=== PATIENT | female | born 1950 | race Caucasian/White ===

== ENCOUNTER 2020-03-08 21:17 | Emergency (ER) | payer MEDICARE ==
[~2020-03-08] VITALS: Ht 160 cm; Wt 68.0 kg
[~2020-03-08 21:17] MED LIST: ASPIR-LOW81 MG PO; LISINOPRIL10 MG PO; METOPROLOL SUCC50 MG PO
[2020-03-08] MEDS ORDERED: LOVASTATIN40 MG PO (21:27)
[2020-03-08] MEDS ORDERED: LISINOPRIL20 MG PO (21:28)
[2020-03-08] MEDS ORDERED: METOPROLOL SUC100 MG PO (21:28)
--- NOTE | 2020-03-09 02:30 | EKG ---
[facility] [address] [facility] [place], [place] [address] Signed Normal sinus rhythm Nonspecific ST and T wave abnormality Abnormal ECG No previous ECGs available Confirmed by SETH PECK MD ([id number]) on 03/09/2020 2:29:45 AM Electronically Signed By: SETH PECK MD 03/09/20 0230 PATIENT NAME: MANUEL GONSALEZ Electrocardiogram DATE OF : 46 PHYSICIAN: SETH PECK MD REPORT #: [id number] REPORT IS CONFIDENTIAL AND NOT TO BE RELEASED WITHOUT AUTHORIZATION
== END 2020-03-08 22:42 | disposition home or self-care (01) ==
LOC: ED 21:17
DX: R00.2 Palpitations (principal); I10 Essential (primary) hypertension; E78.00 Pure hypercholesterolemia, unspecified; Z87.891 Personal history of nicotine dependence; Z79.899 Other long term (current) drug therapy; Z79.82 Long term (current) use of aspirin
CPT/HCPCS: 80053; 83735; 84484; 85025; 93005; 93010; 99285-25

== ENCOUNTER 2020-10-12 22:16 | Emergency (ER) | payer MEDICARE ==
[~2020-10-12] VITALS: Ht 160 cm; Wt 68.0 kg
[~2020-10-12 22:16] MED LIST changes: +LISINOPRIL20 MG PO; +LOVASTATIN40 MG PO; +METOPROLOL SUC100 MG PO
--- NOTE | 2020-10-13 18:43 | EKG ---
[facility] [address] [facility] [place] [address] Signed Normal sinus rhythm Nonspecific ST abnormality Abnormal ECG When compared with ECG of 08-MAR-2020 21:28, Nonspecific T wave abnormality no longer evident in Anterolateral leads Confirmed by LEOBARDO PEREZ DO ([id number]) on 10/13/2020 6:43:15 PM Electronically Signed By: LEOBARDO PEREZ DO 10/13/20 1843 PATIENT NAME: CELESTINE GONSALEZPALMER SIERRA Electrocardiogram DATE OF : 46 PHYSICIAN: LEOBARDO PEREZ DO REPORT #: [id number] REPORT IS CONFIDENTIAL AND NOT TO BE RELEASED WITHOUT AUTHORIZATION
== END 2020-10-13 02:45 | disposition home or self-care (01) ==
LOC: ED 22:16
DX: R07.89 Other chest pain (principal); I25.2 Old myocardial infarction; I10 Essential (primary) hypertension; E78.00 Pure hypercholesterolemia, unspecified; Z87.891 Personal history of nicotine dependence; Z79.899 Other long term (current) drug therapy; Z79.82 Long term (current) use of aspirin
CPT/HCPCS: 71045; 71260; 80053; 83735; 84484; 85025; 85379; 93005; 93010; 99285-25; Q9967

== ENCOUNTER 2020-12-13 19:11 | Emergency (ER) | payer MEDICARE, OTHER ==
[~2020-12-13] VITALS: Ht 160 cm; Wt 70.4 kg
--- NOTE | 2020-12-13 19:50 | EKG ---
[facility] [address] [facility] [place] [address] Signed Normal sinus rhythm with sinus arrhythmia Nonspecific ST and T wave abnormality Abnormal ECG When compared with ECG of 12-OCT-2020 22:22, Nonspecific T wave abnormality now evident in Inferior leads Nonspecific T wave abnormality now evident in Anterolateral leads Confirmed by LEOBARDO PEREZ DO ([id number]) on 12/13/2020 7:50:04 PM Electronically Signed By: LEOBARDO PEREZ DO 12/13/20 1950 PATIENT NAME: CELESTINE GONSALEZPALMER ENCINASA Electrocardiogram DATE OF : 46 PHYSICIAN: LEOBARDO PEREZ DO REPORT #: [id number] REPORT IS CONFIDENTIAL AND NOT TO BE RELEASED WITHOUT AUTHORIZATION
--- NOTE | 2020-12-14 20:21 | EKG ---
[facility] [address] [facility] [place], [place] [address] Signed Normal sinus rhythm Normal ECG When compared with ECG of 13-DEC-2020 19:14, Nonspecific T wave abnormality no longer evident in Lateral leads Confirmed by LEOBARDO PEREZ DO ([id number]) on 12/14/2020 8:21:34 PM Electronically Signed By: LEOBARDO PEREZ DO 12/14/202020 PATIENT NAME: SUNSHINEMANUELPALMER SIERRA Electrocardiogram DATE OF : 46 PHYSICIAN: LEOBARDO PREEZ DO REPORT #: [id number] REPORT IS CONFIDENTIAL AND NOT TO BE RELEASED WITHOUT AUTHORIZATION
== END 2020-12-13 21:28 | disposition home or self-care (01) ==
LOC: ED 19:11
DX: R07.89 Other chest pain (principal); I10 Essential (primary) hypertension; E78.00 Pure hypercholesterolemia, unspecified; Z79.82 Long term (current) use of aspirin; Z87.891 Personal history of nicotine dependence; Z79.899 Other long term (current) drug therapy
CPT/HCPCS: 71045; 80053; 83735; 84484; 85025; 93005; 93010; 99285-25

== ENCOUNTER 2021-01-22 09:43 | Emergency (ER) | payer OTHER ==
[~2021-01-22] VITALS: Ht 160 cm; Wt 68.9 kg
--- NOTE | 2021-01-23 14:59 | EKG ---
[facility] [address] [place] [address] Signed Accelerated Junctional rhythm Incomplete right bundle branch block ST \T\ T wave abnormality, consider inferior ischemia Abnormal ECG When compared with ECG of 13-DEC-2020 20:34, Junctional rhythm has replaced Sinus rhythm Vent. rate has increased BY [address] now depressed in Inferior leads T wave inversion more evident in Inferior leads Confirmed by COLLIN AMAYA MD ([id number]) on 01/23/2021 2:59:12 PM Electronically Signed By: COLLIN AMAYA MD 01/23/21 1459 PATIENT NAME: MANUEL GONSALEZ Electrocardiogram DATE OF : 46 PHYSICIAN: COLLIN AMAYA MD REPORT #: [id number] REPORT IS CONFIDENTIAL AND NOT TO BE RELEASED WITHOUT AUTHORIZATION
--- NOTE | 2021-01-23 14:59 | EKG ---
[facility] [address] [facility] [place] [address] Signed Normal sinus rhythm Nonspecific T wave abnormality Abnormal ECG When compared with ECG of 22-JAN-2021 10:02, (Unconfirmed) Sinus rhythm has replaced Junctional rhythm Vent. rate has decreased BY [address] no longer depressed in Inferior leads Confirmed by COLLIN AMAYA MD ([id number]) on 01/23/2021 2:59:17 PM Electronically Signed By: COLLIN AMAYA MD 01/23/21 1459 PATIENT NAME: MANUEL GONSALEZ Electrocardiogram DATE OF : 46 PHYSICIAN: COLLIN AMAYA MD REPORT #: [id number] REPORT IS CONFIDENTIAL AND NOT TO BE RELEASED WITHOUT AUTHORIZATION
== END 2021-01-22 13:28 | disposition home or self-care (01) ==
LOC: ED 09:43
DX: I47.1 Supraventricular tachycardia (principal); I25.2 Old myocardial infarction; I10 Essential (primary) hypertension; E78.00 Pure hypercholesterolemia, unspecified; Z95.1 Presence of aortocoronary bypass graft; Z87.891 Personal history of nicotine dependence; Z79.899 Other long term (current) drug therapy; Z79.82 Long term (current) use of aspirin
CPT/HCPCS: 80053; 83735; 84484; 85025; 93005; 93010; 99285-25

== ENCOUNTER 2021-03-22 19:20 | Emergency (ER) | payer MEDICARE ==
[~2021-03-22] VITALS: Ht 160 cm; Wt 66.0 kg
--- NOTE | 2021-03-25 11:25 | EKG ---
[facility] [address] [facility] [place] [address] Signed Normal sinus rhythm ST \T\ T wave abnormality, consider inferior ischemia Abnormal ECG When compared with ECG of 22-JAN-2021 11:05, No significant change was found Confirmed by COLLIN AMAYA MD ([id number]) on 03/25/2021 11:25:03 AM Electronically Signed By: COLLIN AMAYA MD 03/25/21 1125 PATIENT NAME: CELESTINE GONSALEZPALMER SIERRA Electrocardiogram DATE OF : 46 PHYSICIAN: COLLIN AMAYA MD REPORT #: [id number] REPORT IS CONFIDENTIAL AND NOT TO BE RELEASED WITHOUT AUTHORIZATION
== END 2021-03-23 19:53 | disposition short-term general hospital (02) ==
LOC: ED 19:20
DX: I21.4 Non-ST elevation (NSTEMI) myocardial infarction (principal); I16.0 Hypertensive urgency; Z20.822 Contact with and (suspected) exposure to COVID-19; I25.2 Old myocardial infarction; I10 Essential (primary) hypertension; E78.00 Pure hypercholesterolemia, unspecified; I48.91 Unspecified atrial fibrillation; Z87.891 Personal history of nicotine dependence; Z79.82 Long term (current) use of aspirin; Z79.899 Other long term (current) drug therapy
CPT/HCPCS: 71045; 80053; 83735; 84484; 85025; 85730; 93005; 93010; 96374; 96375; 99285-25; C9803; J1644; U0003

== ENCOUNTER 2021-05-03 08:08 | Emergency (ER) | payer MEDICARE ==
[~2021-05-03] VITALS: Ht 160 cm; Wt 65.8 kg
--- NOTE | 2021-05-03 20:35 | EKG ---
[facility] [address] [facility] [place] [address] Signed Sinus rhythm with 1st degree AV block Nonspecific T wave abnormality Abnormal ECG When compared with ECG of 22-MAR-2021 19:27, W[place] interval has increased Nonspecific T wave abnormality has replaced inverted T waves in Inferior leads Confirmed by SETH PECK MD ([id number]) on 05/03/2021 8:35:40 PM Electronically Signed By: SETH PECK MD 05/03/212034 PATIENT NAME: CELESTINE GONSALEZPALMER SIERRA Electrocardiogram DATE OF : 46 PHYSICIAN: SETH PECK MD REPORT #: [id number] REPORT IS CONFIDENTIAL AND NOT TO BE RELEASED WITHOUT AUTHORIZATION
== END 2021-05-03 12:10 | disposition home or self-care (01) ==
LOC: ED 08:08
DX: R07.2 Precordial pain (principal); I25.2 Old myocardial infarction; I10 Essential (primary) hypertension; E78.5 Hyperlipidemia, unspecified; I48.91 Unspecified atrial fibrillation; Z79.899 Other long term (current) drug therapy; Z79.82 Long term (current) use of aspirin; Z87.891 Personal history of nicotine dependence
CPT/HCPCS: 36415; 71045; 80048; 84484; 85025; 93005; 93010; 99285-25

== ENCOUNTER 2021-05-25 21:41 | Inpatient (IN) | payer MEDICARE ==
[~2021-05-25] VITALS: Ht 160 cm; Wt 65.4 kg
--- NOTE | ~2021-05-25 | OR ---
[facility] [address] [place], [place] [address] Draft DATE OF OPERATION: 05/26/2021 SURGEON: Yoli Oliveros MD PREOPERATIVE DIAGNOSES: 1. Severe acute calculous cholecystitis. 2. History of non-STEMI two months ago, status post drug-eluting stent x1; anti-platelet therapy, aspirin and Plavix. POSTOPERATIVE DIAGNOSES: 1. Severe acute calculous cholecystitis. 2. History of non-STEMI two months ago, status post drug-eluting stent x1; anti-platelet therapy, aspirin and Plavix. PROCEDURE: Laparoscopic cholecystectomy with attempted (failed intraoperative cholangiogram) prolonged, complicated and difficult. 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 INDICATION: A 71-year-old white woman presents to the emergency room, was evaluated by Dr. Gill for severe right subcostal pain with localized tenderness. A gallbladder ultrasound was performed confirming a thickened gallbladder wall with multiple stones and a CT scan was additionally performed which showed no sign of cardiothoracic pathology. The patient has very complex past medical history including history of coronary artery bypass grafting years ago and two months ago a non-STEMI requiring a drug-eluting stent x1. This was in the right coronary artery. She additionally had an 80% and 70% stenosis of a left coronary artery. She has been on anti-platelet therapy of aspirin and Plavix. She has been admitted, fluid resuscitated and consideration of her complicated issues undertaken. Consultation was undertaken with Dr. Amaya. Given the severity of her cholecystitis clinically and otherwise expedient cholecystectomy was deemed advisable. Waiting for a "elective" time would not be appropriate in her situation. On that basis, her aspirin and Plavix have been withheld for the past 24 hours and platelet infusion undertaken under my direction today. She is now to undergo cholecystectomy preferably by laparoscopic approach. She understands the risk of bleeding, infection, bile duct injury, failure to cure her symptoms, need for open procedure, and of course, the PATIENT NAME: MANUEL GONSALEZ OPERATIVE REPORT DATE OF : 46 REPORT #: [id number] PHYSICIAN: YOLI OLIVEROS MD PCP: JEN MCKINNEY NP REPORT IS CONFIDENTIAL AND NOT TO BE RELEASED WITHOUT AUTHORIZATION [facility] [address] [place] [address] Draft possibility of operative bleeding or stent or vessel thrombosis. Understanding these specialized and significant risks, she wishes to proceed. FINDINGS: The gallbladder was quite markedly thickened and intensely inflamed. Cholecystectomy was successfully performed. She had multiple large stones in the gallbladder. The cystic duct was well identified but fibrotic and would not accommodate the cholangiocatheter due to anatomic positioning reasons and further procedure cholangiogram was not undertaken. Notably, she had normal preoperative liver enzymes and bilirubin. The operation was challenging on the basis of her obesity, her distended gallbladder and inflammatory changes, but was accomplished safely and without untoward bleeding. Fibrin glue was used as an adjunct for hemostasis. DESCRIPTION OF PROCEDURE: The patient was brought to the operating room, given a general endotracheal anesthetic without problem. The abdomen was prepared with a chlorhexidine solution and draped sterilely. Preoperative antibiotic Ancef was given. Sequential compression device stockings were used. Heparin was not administered. The abdomen was prepared with a chlorhexidine solution and draped sterilely. An infraumbilical incision was made using an open Zeke cannula technique. Pneumoperitoneum was achieved to a level of 14 mmHg of carbon dioxide gas. Intra-abdominal inspection showed no sign of ascites or carcinomatosis. The liver appeared reasonably normal. The gallbladder itself was quite markedly distended and chronically and acutely inflamed. A thick peritoneal rind was noted in the infundibulum. Three additional trocars were placed in usual configuration in the subxiphoid, right midclavicular, and right anterior axillary line. The gallbladder was grasped and elevated cephalad, but was difficult to grasp due to the gallbladder being full of stones and distended and inflamed and thickened. On that basis, it was decompressed with a needle catheter, though not much bile came out actually. It did have bilious fluid color, was not white or clear bile. The gallbladder was once again grasped and elevated cephalad and using retraction of the neck of the gallbladder laterally, blunt dissection was undertaken in the infundibulum. Identified early on were several small blood vessels which were clipped and divided. Ultimately, the cystic duct was identified. It was fibrotic and quite inflamed, but not excessively large. The wound was created between the infundibulum and the cystic duct, identifying well the cystic duct. A clip was applied across gallbladder cystic duct junction and a transverse choledochotomy made in the cystic duct. There was not much egress of bile from it, though there was some. Various maneuvers were made to insert an Morrison type cholangiocatheter into the cystic duct but it was not forthcoming despite efforts to do so. Balancing the hazard of prolonged anesthesia and performance of the cystic duct in the face of normal liver enzymes, I elected to abandon further attempts at cholangiogram at that point. The cystic duct was triply clipped and divided and the gallbladder was then dissected free in a retrograde fashion using electrocautery. PATIENT NAME: CELESTINE GONSALEZPALMER SIERRA OPERATIVE REPORT DATE OF : 46 REPORT #: [id number] PHYSICIAN: YOLI OLIVEROS MD PCP: JEN MCKINNEY NP REPORT IS CONFIDENTIAL AND NOT TO BE RELEASED WITHOUT AUTHORIZATION [address] [address] Draft Meticulous care was undertaken with the dissection as the gallbladder wall was quite markedly edematous, thickened and inflamed. Once excised, it was placed in an endobag and extracted through the infraumbilical port site and found to have multiple large gallstones. There was no sign of neoplasm of mucosa. Irrigation was undertaken in subhepatic space and cautery was used for hemostasis in the liver bed as necessary. Fibrin glue (Tisseel) was injected with the device allowing for additional security for hemostasis. The trocars were removed carefully under direct visualization showing no sign of bleeding. The infraumbilical fascial incision was reapproximated with interrupted 0 Vicryl suture. A 20 mL of 0.25% Marcaine with epinephrine was injected locally. The skin was then closed with interrupted 3-0 Vicryl and Steri-Strips were applied. The patient was extubated without complication, ultimately taken to recovery room in the intensive care unit for further management. She was hemodynamically stable throughout the procedure and there was no untoward bleeding. The operation was prolonged, complicated, and difficult on the basis of the aforementioned factors but was accomplished safely. MD TAVO Pool/THIENL /[id number] cc: ALBERTA Linares MD Dr. Rinehart Copies: COLLIN AMAYA MD ~ PATIENT NAME: MANUEL GONSALEZ OPERATIVE REPORT DATE OF : 46 REPORT #: [id number] PHYSICIAN: YOLI OLIVEROS MD PCP: JEN MCKINNEY NP REPORT IS CONFIDENTIAL AND NOT TO BE RELEASED WITHOUT AUTHORIZATION
--- NOTE | ~2021-05-25 | HP ---
[facility] [address] [place], [place] [address] Draft ADMISSION DATE: 05/26/2021 REASON FOR ADMISSION: Severe acute cholecystitis. HISTORY OF PRESENT ILLNESS: This 71-year-old white woman presents to the emergency room having had approximately 48 hours of severe right upper abdominal and epigastric pain. Her evaluation by Dr. Gill in the emergency room confirmed clinical suspicion of acute cholecystitis; evaluation included a gallbladder ultrasound which showed marked thickening of the gallbladder wall as well as gallstones. Notably she had significant tenderness in the epigastric and right subcostal area. She notes that she had nausea and some vague abdominal pain in the upper abdomen of long-standing, but only recently has become rather severe. Complicating her situation was a history of a non-ST elevation myocardial infarction approximately two months ago for which she underwent coronary stenting at [facility] in the [facility]. On that basis, she is on both aspirin and Plavix. I assume she has drug-eluting stents. She is admitted for further evaluation and care. A CT scan was additionally performed showing diffuse gallbladder wall thickening and gallstones and pancolonic wall thickening suggestive of underdistention. Consultation was undertaken with Dr. Amaya, who kindly evaluated the patient and has called Cardiology at [facility] regarding the issue of concurrent anti-platelet therapy and need for operation. General recommendations of course are to maintain anti-platelet therapy as soon as possible after operation though her medications have been held at the moment. I had reviewed and have ordered platelet therapy for consideration of preoperative infusion so as to minimize the bleeding potential. Mindful that the data regarding platelet therapy in relation to stent thrombosis is unsettled largely. The patient has been initiated on Ancef antibiotic and made n.p.o. and given IV fluids. Her current situation is that of persistent right subcostal pain and nausea. She has no precordial chest pain or pain typical of her previous cardiac pain. PATIENT NAME: MANUEL GONSALEZ HISTORY AND PHYSICAL DATE OF : 46 REPORT #: [id number] PHYSICIAN: YOLI OLIVEROS MD PCP: JEN MCKINNEY NP REPORT IS CONFIDENTIAL AND NOT TO BE RELEASED WITHOUT AUTHORIZATION [facility] [address] [place], [place] [address] Draft PAST MEDICAL HISTORY: Includes smoking, which she ceased over 20 years ago. She has not had abdominal surgery in the past. The patient is known to have had history of atrial fibrillation, not evident at this time. SOCIAL HISTORY: She is . Her in the past year of myocardial infarction. She has four adult children who live elsewhere. Her daughter who has seen her is from [place], [place] and is aware of her situation overall. REVIEW OF SYSTEMS: She denies any hematemesis or blood per rectum. She has had no dysphagia or dysuria. Denies any TIA symptoms. She is known to have carotid occlusion unilaterally and 75% stenosis on the other side. PHYSICAL EXAMINATION: GENERAL: This is a pleasant white woman who is alert and oriented and does not look systemically toxic at this time. VITAL SIGNS: Her temperature has been 99.2 this morning, 98.8 last night. Her pulse is 87, blood pressure 173/61, O2 saturation is 98% on room air. HEENT: Trachea is midline. She has no hoarseness. There is noted thyromegaly. CHEST: Shows normal respiratory excursion and is clear. HEART: Regular; surveillance system monitor shows no evidence of atrial fibrillation. ABDOMEN: Somewhat obese. She has marked tenderness in right subcostal and epigastric area. There is no palpable mass. She has no ascites. EXTREMITIES: Show no clubbing, cyanosis, or edema. She does not yet have sequential compression device stockings in place. LABORATORY STUDIES: Show a white count of 8.0, hematocrit of 36.3, platelets of 178,000. Chem profile showing a creatinine of 1.32 and glucose of 119. Liver enzymes are normal. Lipase normal at 109. COVID serology is negative. I have reviewed her abdominal ultrasound, which shows a thickened gallbladder wall and a few stones. There is no sign of intrahepatic ductal dilatation. A CT scan is reviewed in detail showing no sign of pleural effusion. She has calcific changes of the aorta in the arch. The liver appears normal. Gallbladder has a diffuse hazy appearance suggestive of acute inflammation. The gallbladder on the CT scan does not look nearly as thickened as the ultrasound shows. ASSESSMENT: The patient has rather significant acute calculous cholecystitis with thickening of the gallbladder wall. Antibiotics and IV fluids have been initiated and she has persistent PATIENT NAME: MANUEL GONSALEZ HISTORY AND PHYSICAL DATE OF : 46 REPORT #: [id number] PHYSICIAN: YOLI OLIVEROS MD PCP: JEN MCKINNEY NP REPORT IS CONFIDENTIAL AND NOT TO BE RELEASED WITHOUT AUTHORIZATION [facility] [address] [place] [address] Draft tenderness of a significant degree. There is no evidence of intrahepatic ductal dilatation to strongly suggest common duct obstruction. The issue in her situation of course remains the issue of anti-platelet therapy, both aspirin and Plavix. Her medication has been withheld today. Options of management would include delay of operation that is well needed for several days to repopulate grindstone platelets to be unaffected by anticoagulant (anti-platelet) effect. It is certainly probable that continued delay of operative intervention would worsen the situation of her cholecystitis and perhaps trend towards more difficult operation in fact and possibly progression to problematic bleeding. Balancing the risk of stent thrombosis upon withdrawal of platelet agents so as to avoid bleeding complications is a balancing act to be sure. Given the acuity of her problem, I think the best approach in her case would be to infuse platelets and proceed to operative intervention more promptly than much later. Certainly, the risk of bleeding still obtained for surgical intervention as complete reversal of her platelet dysfunction will not be forthcoming with infusion of platelets, though it likely would be enough to decrease the chances of significant bleeding from coagulopathy. An open approach may become necessary, but the same thrombotic and bleeding risk would still apply. Prompt re-initiation of aspirin and Plavix postoperatively (24 hours to 48 hours) depending on operative findings and blood loss would be very likely. I have conferred with Dr. Amaya who agrees with this approach at this time. PLAN: We will schedule for operation today following platelet transfusion. Maintain n.p.o. status. IV fluids and IV antibiotics in the meantime. I have discussed all of these issues with the patient in the presence of nurse (Kennedi Mendoza). She understands the special risks in her particular situation and agrees to proceed as I have recommended. The risk of operation include, but are not limited to bleeding, infection, bile duct injury, significant hemorrhage requiring additional intervention, coronary stent thrombosis, and other unforeseen complications. She understands and wished to proceed. Yoli Oliveros MD PATIENT NAME: MANUEL GONSALEZ HISTORY AND PHYSICAL DATE OF : 46 REPORT #: [id number] PHYSICIAN: YOLI OLIVEROS MD PCP: JEN MCKINNEY NP REPORT IS CONFIDENTIAL AND NOT TO BE RELEASED WITHOUT AUTHORIZATION [address] [place] [address] Draft /[facility] /[id number] cc: Collin Amaya MD Copies: COLLIN AMAYA MD ~ PATIENT NAME: MANUEL GONSALEZ HISTORY AND PHYSICAL DATE OF : 46 REPORT #: [id number] PHYSICIAN: YOLI OLIVEROS MD PCP: JEN MCKINNEY NP REPORT IS CONFIDENTIAL AND NOT TO BE RELEASED WITHOUT AUTHORIZATION
[~2021-05-25 21:41] MED LIST changes: -LISINOPRIL20 MG PO; +ZESTRIL40 MG PO
--- OUTSIDE RECORDS SUMMARY | 2021-05-25 21:48 | XMS ---
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 Dalila has no Care Guidelines for this patient. Karine VISIT COUNT (12 MO.) 6 [facility] TOTAL 6 NOTE: Visits indicate total known visits. ED/C VISIT TRACKING (12 MO.) 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 - Old myocardial infarction - Dizziness and giddiness 03/22/2021 19:20 [facility] [place] TYPE: Emergency COMPLAINT: - CHEST PAIN DIAGNOSES: - 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 - Chest pain, unspecified - Personal history of nicotine dependence - Pure hypercholesterolemia, unspecified - Hypertensive urgency - Essential (primary) hypertension - Unspecified atrial fibrillation - group home (current) use of aspirin - Non-ST elevation (NSTEMI) myocardial infarction - Old myocardial infarction 01/22/2021 09:44 [facility] [place] TYPE: Emergency COMPLAINT: - HEART PALPITATION DIAGNOSES: - Supraventricular tachycardia - Pure hypercholesterolemia, unspecified - Other shelter (current) drug therapy - Palpitations - Personal history of nicotine dependence - 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 - Presence of aortocoronary bypass graft - Essential (primary) hypertension - Old myocardial infarction 12/13/2020 19:11 [facility] [place] TYPE: Emergency COMPLAINT: - CHEST PAIN/JAW PAIN DIAGNOSES: - Essential (primary) hypertension - group home (current) use of aspirin - Other chest pain - Personal history of nicotine dependence - Pure hypercholesterolemia, unspecified - Other shelter (current) drug therapy 10/12/2020 22:16 [facility] [place] TYPE: Emergency COMPLAINT: - CHEST DISCOMFORT DIAGNOSES: - Other chest pain - Chest pain, unspecified - Old myocardial infarction - Other shelter (current) drug therapy - Essential (primary) hypertension - Pure hypercholesterolemia, unspecified - Other chest pain - Personal history of nicotine dependence - group home (current) use of aspirin INPATIENT VISIT TRACKING (12 MO.) 03/23/2021 21:19 [facility] [place] TYPE: Internal Medicine DIAGNOSES: [address]. Non-ST elevation (NSTEMI) myocardial infarction [address]. [email or web address]
[2021-05-25] MEDS ORDERED: LISINOPRIL40 MG PO (21:56)
[2021-05-25] MEDS ORDERED: CLOPIDOGREL75 MG PO (21:56)
--- NOTE | 2021-05-26 05:58 | NUR ---
PT ARRIVED ON UNIT A&OX4. AMBULATED TO RR WITHOUT ASSIT, STABLE ON FEET. ABDOMEN TENDER ON PALPATION, PT DENIES PAIN OTHERWISE BUT STATES STILL EXTREMELY NAUSEATED, SECOND DOSE OF IV ZOFRAN GIVEN PRIOR TO ARRIVAL. WILL CONTACT MD IF NAUSEA PERSISTS. ORIENTED PT TO ROOM, POC, AND CALL LIGHT.
--- NOTE | 2021-05-26 06:30 | NUR ---
PT CONTINUES TO HAVE SEVERE NAUSEA [address] Gary NOTIFIED AND ORDER OBTAINED FOR PRN PHENERGAN.
--- NOTE | 2021-05-26 07:50 | NUR ---
Pt states she lives in a mobile home with few steps. She has two daughte rs, Bayron in [place] and Chad in [place]. Both will help her if needed. Pt works at the [employer]. Denies financial issues. Plans on dc to home when medically cleared. She spoke with Dr. Bray, unsure if she will have surgery.
--- NOTE | 2021-05-26 08:00 | NUR ---
UPON ENETERING ROOM, PATIENT C/O OF CHEST PAIN. STATES I" JUST WOKE UP AND THIS PAIN IS BACK. MD NOTIFIED.
--- NOTE | 2021-05-26 08:15 | NUR ---
MORPHINE 2 MG IV GIVEN FOR PAIN. GAVE 2 MG OUT OF FOUR MG VIAL. COMPLETE ASSESSMENT DONE. TALKED WITH PATIENT ABOUT POC FOR THE DAY. DENIES NEED TO VOID AT THIS TIME.
--- NOTE | 2021-05-26 08:40 | NUR ---
RESTING AFTER MORPHINE GIVEN.
--- NOTE | 2021-05-26 09:34 | NUR ---
DR. AMAYA HERE TO SEE PATIENT,. PATIENT C/O ABD/CHEST PAIN, RATES 5/10. MORPHINE 4 MG IV GIVEN. ORAL CARE GIVEN.
--- NOTE | 2021-05-26 10:00 | NUR ---
LABATOLOL 10 MG IV GIVEN PER ORDERS.
--- NOTE | 2021-05-26 10:51 | NUR ---
DR. OLIVEROS HAS BEEN HERE TO SEE PATIENT. POSSIBLE TO OR TODAY.
--- NOTE | 2021-05-26 12:30 | NUR ---
resting now. CHLORHEXIDINE BATH HAS BEEN GIVEN. PATIENT DAUGHTER IN ROOM. EKG HAS BEEN COMPLETE. PLAN TO GO TO OR THIS AFTERNOON FOR LAP CHOLEY. SURGICAL CONSENT SIGNED.
[2021-05-26] MEDS ORDERED: LOVASTATIN40 MG PO (12:31)
[2021-05-26] MEDS ORDERED: ATORVASTATIN CA20 MG PO (12:37)
--- NOTE | 2021-05-26 13:40 | NUR ---
PLATLETS HUNG PER ORDERS.
--- NOTE | 2021-05-26 14:03 | NUR ---
PLATELETS FINISHED INFUSING AT 1355 THROUGH A 22 G IN LEFT FOREARM TO GRAVITY W/O DIFFICULTY. IV FLUSHES AFTERWARDS AND FLUSHES WELL. PT TOLERATED WELL. 266 ML TOTAL INFUSED. PT RESTING AT THIS TIME WITH EYES CLOSED. PT'S DAUGHTER REMAINS IN ROOM. CONTNUE TO MONITOR CLOSELY.
--- NOTE | 2021-05-26 14:45 | NUR ---
TO OR VIA BED. Mabel LAI RN PLACED 20 GAUGE IV TO LAC PRIOR TO GOING TO OR. LR TKO INFUSING.
--- NOTE | 2021-05-26 15:58 | NUR ---
medications reconciled using pharmacy records and [facility] discharge orders
--- NOTE | 2021-05-26 16:37 | NUR ---
05/26/21 1637 Radha Morales 1626-PATIENT ARRIVED TO PACU ON 6L MASK NONAROUSABLE ORAL AIRWAY IN PLACE. 4 LAP SITES TO ABDOMEN STERI STRIPS CDI. PATIENT IS BEING BLADDER SCANNED BY CCU RN HAS NOT VOIDED SINCE THIS AM. BLADDER SCAN FOR 501 MLS. PER VALERI STEREOTYPER IF SBP IS GREATER THAN 180 RESTART BP MEDICATIONS. 1634-PATIENT AROUSING OPENING EYES ORAL AIRWAY REMOVED.PATIENT REMAINS VERY DROWSY AND IMMEDIATELY FALLS BACK ASLEEP. 6L MASK RR EVEN. BP 187/67. CCU RN ADMINISTERING BP MEDICATION.
--- NOTE | 2021-05-26 17:00 | NUR ---
REPORT RECIEVED FROM VISION REHABILITATION THERAPIST. PATIENT IS AWAKE, C/O SOME POST-OP PAIN, DENIES NEED FOR PAIN MEDICATION. NO BLEEDING NOTED FROM LAP SITES, STERI STRIPS IN PLACE.
--- NOTE | 2021-05-26 17:17 | EKG ---
[facility] [address] [facility] [place] [address] Signed Normal sinus rhythm Nonspecific ST abnormality Abnormal ECG When compared with ECG of 03-MAY-2021 08:24, CO interval has decreased Nonspecific T wave abnormality no longer evident in Inferior leads Confirmed by COLLIN AMAYA MD ([id number]) on 05/26/2021 5:17:04 PM Electronically Signed By: COLLIN AMAYA MD 05/26/21 1717 PATIENT NAME: CELESTINE GONSALEZPALMER SIERRA Electrocardiogram DATE OF : 46 PHYSICIAN: COLLIN AMAYA MD REPORT #: [id number] REPORT IS CONFIDENTIAL AND NOT TO BE RELEASED WITHOUT AUTHORIZATION
--- NOTE | 2021-05-26 17:19 | EKG ---
[facility] [address] [facility] [place], [place] [address] Signed Normal sinus rhythm Nonspecific ST and T wave abnormality Prolonged QT Abnormal ECG When compared with ECG of 25-MAY-2021 21:46, (Unconfirmed) No significant change was found Confirmed by COLLIN AMAYA MD ([id number]) on 05/26/2021 5:19:07 PM Electronically Signed By: COLLIN AMAYA MD 05/26/21 1719 PATIENT NAME: MANUEL GONSALEZ Electrocardiogram DATE OF : 46 PHYSICIAN: COLLIN AMAYA MD REPORT #: [id number] REPORT IS CONFIDENTIAL AND NOT TO BE RELEASED WITHOUT AUTHORIZATION
--- NOTE | 2021-05-26 18:00 | NUR ---
UP TO COMMODE TO VOID 450 ML OF CLEAR JOHN URINE. TRANSFERS WELL WITH LITTLE ASSIST.DENIES NEED FOR PAIN MEDICATION. NO BLEEDING NOTED FROM LAP SITES,
--- NOTE | 2021-05-26 18:58 | NUR ---
NO FUTHER CHANGES. PATIENT IS SLEEPING WITH HOB ELEVATED. NO DISTRESS NOTED.
--- NOTE | 2021-05-26 19:30 | NUR ---
RECEIVED REPORT FROM DAY SHIFT RN. PT LAYING IN BED IN ACUTE DISTRESS. PT REPORTS FEELING WELL, JUST SLEEPY. [address] DRAINAGE NOTED ON DRESSING. PT REPORTS PAIN WITH PALPITATION. VSS RESP EVEN AND UNLABORED. RESFUSES PAIN MEDS, DAUGHTER AT BEDSIDE, TOLERTAING PO WELL. CALL LIGHT WITHIN REACH . WILL CONTINUE TO MONITOR.
--- NOTE | 2021-05-26 22:11 | NUR ---
PT SLEEPING IN BED IN ACUTE DISTRESS, RESP EVEN AND UNLABORED. VSS CALL LIGHT WITHIN REACH WILL CONTINUE TO MONITOR
--- NOTE | 2021-05-26 22:54 | NUR ---
PT DESATS AT HS, POSSIBLE SLEEP APNEA PLACED PT ON 2L SATS AT 98% IN 2L NC . PT DENIES ANT CONCERNS. CALL LIGHT WITHIN REACH.
--- NOTE | 2021-05-27 00:04 | NUR ---
PT SLEEPING IN BED IN NO ACUTE DISTRESS. PT RESP EVEN AND UNLABORED. VSS CALL LIGHT WITHIN REACH WILL CONTINUE TO MONITOR.
--- NOTE | 2021-05-27 02:13 | NUR ---
PT SLEEPING IN BED IN NO ACUTE DISTRESS. RESP EVEN AND UNLABORED. VSS CALL LIGHT WITHIN REACH WILL CONTINUE TO MONITOR.
--- NOTE | 2021-05-27 05:36 | NUR ---
ASSISTED PT TO THE BATHROOM , SBA . PT VOIDED, REPORTS FEELING REAL ESTATE LISTING CONSULTANT TO ABDOMEN. VSS RESP EVEN AND UNLABORED. PT DENIES ANY CONCERNS AT THIS TIME. WAITING FOR LAB. CALL LIGHT WITHIN REACH WILL CONTINUE TO MONITOR.
--- NOTE | 2021-05-27 07:37 | NUR ---
REPORT RECIEVED, CARE OF PT ASSUMED AT THIS TIME. PT NOW EATINB BREAKFAST. PT REPORTS MILD, MANAGABLE PAIN IN HER ABDOMEN WITH MOVEMENT. DENIES NEED FOR PAIN MEDICATION. IV FLUIDS INFUSING. DENIES FURTHER NEEDS AT THIS TIME.
--- NOTE | 2021-05-27 08:18 | NUR ---
ASSESSMENT AND MEDICATION ADMINISTRATION COMPLETED. PT ALERT AND ORIENTED, ANSWERING ALL QUESTIONS APPROPRIATELY. REPORTS MINIMAL PAIN IN ABDOMEN, WORSENING WITH ACITIVITY. DENIES NEED FOR PAIN MEDICATION. LUNGS SOUND CLEAR THROUGH OUT. BOWEL TONES ACTIVE IN ALL FOUR QUADRANTS. ABDOMEN SOFT. PLAN OF CARE FOR SHIFT ESTABLISHED. ALL QUESTIONS ANSWERED. CALL LIGHT WITHIN REACH. NO FURTHER NEEDS AT THIS TIME
--- NOTE | 2021-05-27 09:30 | NUR ---
PT AMBULATED TO THE BATHROOM INDEPENDENTLY. DENIES CHEST PAIN OR DISCOMFORT. HEART RATE REAMINED NI THE 80S WITH AMBULATION. BACK IN BED, NO FURTHER NEEDS AT THIS TIME.
--- NOTE | 2021-05-27 10:00 | NUR ---
No plan for dc today. Pt awaiting visit from Dr. Bray.
--- NOTE | 2021-05-27 10:45 | NUR ---
DR AMAYA IN TO ASSESS PT. ALL QUESTIONS ANSWERED. DAUGHTER AT [facility]. CALL LIGHT WITHIN REACH. WILL CONTINUE TO MONITOR.
[2021-05-27] MEDS ORDERED: AMLODIPINE BES2.5 MG PO (10:48)
--- NOTE | 2021-05-27 11:29 | NUR ---
PT AMBULATED AROUND MEDICAL UNIT. DENIES CHEST PAIN, INCISIONAL PAIN, OR ANY SHORTNESS OF BREATH. BACK IN BED. CALL LIGHT WITHIN REACH. WILL CONTINUE TO MONITOR.
--- NOTE | 2021-05-27 12:05 | NUR ---
VITALS CHARTED. DAUGHTER AT BEDSIDE. PATIENTS KATALINA CROOKS GUEST LUNCH PROVIDED, CALL LIGHT IN EASY REACH
--- NOTE | 2021-05-27 14:00 | NUR ---
Pt ambulated in hallways with stand by assist only. Back in bed. Call light within reach. No further needs at this time.
--- NOTE | 2021-05-27 16:21 | NUR ---
DR OLIVEROS IN TO SEE PT. PLAN ESTABLISHED TO DC. ASSESSMENT COMPLETED. PT AMUBLATING IN ROOM INDEPENDENTLY. CALL LIGHT WITHIN REACH. DENIES NEEDS AT THIS TIME.
[2021-05-27] MEDS ORDERED: TYLENOL EXTRA500 MG PO (16:41)
--- NOTE | 2021-05-27 17:15 | NUR ---
PATIENT DISCHARGE INSTRUCTIONS GIVEN TO PATIENT AND HER DAUGHTER. PATIENT VERBALIZED UNDERSTANDING. APT. SET-UP WITH HER PRIMARY CARE DOCTOR,. PATIENT REMINDED TO CALL MONDAY TO SET-UP FOLLOW-UP WITH MD OLIVEROS. 2 IVS CONSTANZA'S WNL. PATIENT DRESSED AND BELONGINGS GATHERED. THIS RN WHEELED PATIENT TO THE FRONT WHERE HER DAUGHTER MET US. NO FURTHER QUESTIONS AT THIS TIME. ALL BELONGINGS SENT WITH PATIENT.
== END 2021-05-27 17:25 | disposition home or self-care (01) | DRG 419 ==
LOC: ED 21:41 → CCU 21:42
PROVIDERS: ADMIT Surgery; ATTEND Surgery
PROC: 0FT44ZZ Resection of Gallbladder, Percutaneous Endoscopic Approach (ICD-10-PCS; principal; 2021-05-26 14:00)
DX: K80.00 Calculus of gallbladder with acute cholecystitis without obstruction (principal); Z20.822 Contact with and (suspected) exposure to COVID-19; I10 Essential (primary) hypertension; E78.5 Hyperlipidemia, unspecified; I77.9 Disorder of arteries and arterioles, unspecified; I48.0 Paroxysmal atrial fibrillation; I25.2 Old myocardial infarction; I25.10 Atherosclerotic heart disease of native coronary artery without angina pectoris; Z79.899 Other long term (current) drug therapy; Z95.1 Presence of aortocoronary bypass graft; Z87.891 Personal history of nicotine dependence; Z79.82 Long term (current) use of aspirin; Z79.02 Long term (current) use of antithrombotics/antiplatelets; Z95.5 Presence of coronary angioplasty implant and graft
CPT/HCPCS: 36415; 36430; 71045; 71275; 74174; 76705; 80053; 83690; 83735; 84484; 85025; 86850; 86900; 86901; 86922; 93005; 93010; 99285-25; A9270; J0690; J1100; J2001; J2270; J2405; J2550; J2704; J3010; J7121; P9035; Q9967; U0003

== ENCOUNTER 2021-09-18 09:56 | Emergency (ER) | payer MEDICARE ==
[~2021-09-18] VITALS: Ht 160 cm; Wt 65.3 kg
[~2021-09-18 09:56] MED LIST changes: +AMLODIPINE BES2.5 MG PO; +ATORVASTATIN CA20 MG PO; +CLOPIDOGREL75 MG PO; +LISINOPRIL40 MG PO; +TYLENOL EXTRA500 MG PO
[2021-09-18] MEDS ORDERED: QUESTRAN PACKET4 GM PO (13:00)
== END 2021-09-18 13:30 | disposition home or self-care (01) ==
LOC: ED 09:56
DX: E86.0 Dehydration (principal); K91.89 Other postprocedural complications and disorders of digestive system; R19.7 Diarrhea, unspecified; Y83.8 Other surgical procedures as the cause of abnormal reaction of the patient, or of later complication, without mention of misadventure at the time of the procedure; I10 Essential (primary) hypertension; Z87.891 Personal history of nicotine dependence; Z79.899 Other long term (current) drug therapy
CPT/HCPCS: 36415; 80053; 81001; 83690; 84443; 85025; J2405; J7030

== ENCOUNTER 2021-10-20 07:02 | Emergency (ER) | payer MEDICARE ==
[~2021-10-20] VITALS: Ht 160 cm; Wt 65.5 kg
[~2021-10-20 07:02] MED LIST changes: +QUESTRAN PACKET4 GM PO
--- OUTSIDE RECORDS SUMMARY | 2021-10-20 07:10 | XMS ---
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 Dalila has no Care Guidelines for this patient. Karine VISIT COUNT (12 MO.) [facility] TOTAL 8 NOTE: Visits indicate total known visits. ED/UCC VISIT TRACKING (12 MO.) 10/20/2021 07:02 [facility] Emergency COMPLAINT: - VAGINAL BLEEDING 10/06/2021 15:25 [facility] TYPE: Emergency COMPLAINT: - DIZZY, VISION CHANGES, WEAKNESS DIAGNOSES: - Essential (primary) hypertension - Presence of aortocoronary bypass graft - Presence of coronary angioplasty implant and graft - Dizziness and giddiness - Old myocardial infarction - Unspecified atrial fibrillation - tank terminal gauger (current) use of antithrombotics/antiplatelets - [facility] [place] [facility] drug therapy - tank terminal gauger (current) use of aspirin - Personal history of nicotine dependence 09/18/2021 09:57 [facility] TYPE: Emergency COMPLAINT: - MULTIPLE COMPLAINTS DIAGNOSES: - Other postprocedural complications and disorders of digestive system - Other medical terminologist (current) drug therapy - Personal history of nicotine dependence - Essential (primary) hypertension - Dizziness and giddiness - Diarrhea, unspecified - Dehydration - Other surgical procedures as the cause of abnormal reaction of the patient, or of later complication, without mention of misadventure at the time of the procedure 05/25/2021 21:41 [facility] TYPE: Emergency COMPLAINT: - CHEST PAIN, NAUSEA 05/03/2021 08:08 [facility] TYPE: Emergency COMPLAINT: - RACING HEART RATE, PRESSURE, NAUSEA, DIZZY DIAGNOSES: - Essential (primary) hypertension - Hyperlipidemia, unspecified - Precordial pain - Old myocardial infarction - Other [place] [facility]current[facility] drug therapy - Unspecified atrial fibrillation - Personal history of nicotine dependence - Dizziness and giddiness - tank terminal gauger (current) use of aspirin 03/22/2021 19:20 [facility] TYPE: Emergency COMPLAINT: - CHEST PAIN DIAGNOSES: - Hypertensive urgency - Personal history of nicotine dependence - Old myocardial infarction - Other [place] [facility] (current[facility] drug therapy - nursing home (current) use of aspirin - Essential (primary) hypertension - Pure hypercholesterolemia, unspecified - Contact with and (suspected) exposure to COVID-19 - Chest pain, unspecified - Non-ST elevation (NSTEMI) myocardial infarction - Unspecified atrial fibrillation 01/22/2021 09:44 [facility] TYPE: Emergency COMPLAINT: - HEART PALPITATION DIAGNOSES: - Personal history of nicotine dependence - Other medical terminologist (current) drug therapy - Supraventricular tachycardia - Essential (primary) hypertension - nursing home (current) use of aspirin - Palpitations - Pure hypercholesterolemia, unspecified - Old myocardial infarction - Presence of aortocoronary bypass graft 12/13/2020 19:11 [facility] TYPE: Emergency COMPLAINT: - CHEST PAIN/JAW PAIN DIAGNOSES: - Pure hypercholesterolemia, unspecified - Other chest pain - Essential (primary) hypertension - Other medical terminologist (current) drug therapy - Personal history of nicotine dependence - nursing home (current) use of aspirin INPATIENT VISIT TRACKING (12 MO.) 05/26/2021 11:19 [facility] TYPE: Critical Care COMPLAINT: - CHOLECYSTITIS DIAGNOSES: - nursing home (current) use of aspirin - Presence of aortocoronary bypass graft - Hyperlipidemia, unspecified - tank terminal gauger (current) use of antithrombotics/antiplatelets - Presence of coronary angioplasty implant and graft - Old myocardial infarction - Essential (primary) hypertension - tank terminal gauger (current) use of aspirin - nursing home (current) use of antithrombotics/antiplatelets - Calculus of gallbladder with acute cholecystitis without obstruction - Disorder of arteries and arterioles, unspecified - Atherosclerotic heart disease of [place] coronary artery without angina pectoris - Other [place] [facility] [place]current[facility] drug therapy - Personal history of nicotine dependence - Old myocardial infarction - Atherosclerotic heart disease of [place] coronary artery without angina pectoris - Presence of aortocoronary bypass graft - Paroxysmal atrial fibrillation - Other medical terminologist (current) drug therapy - Presence of coronary angioplasty implant and graft - Essential (primary) hypertension - Paroxysmal atrial fibrillation - Contact with and (suspected) exposure to COVID-19 - Disorder of arteries and arterioles, unspecified - Hyperlipidemia, unspecified - Personal history of nicotine dependence 03/23/2021 21:19 [facility] [place] TYPE: Internal Medicine DIAGNOSES: [address]. Non-ST elevation (NSTEMI) myocardial infarction 54699. [email or web address]
[2021-10-20] MEDS ORDERED: CEPHALEXIN500 M1 PO (08:21)
[2021-10-20] MEDS ORDERED: PYRIDIUM200 MG PO (08:21)
== END 2021-10-20 08:44 | disposition home or self-care (01) ==
LOC: ED 07:02
DX: N30.00 Acute cystitis without hematuria (principal); Z87.891 Personal history of nicotine dependence
CPT/HCPCS: 81001; 87088; 99283; A9270